=== PATIENT | male | born 1990 | race Caucasian/White ===

== ENCOUNTER 2019-09-08 11:06 | Outpatient (CLI) | payer OTHER, SELFPAY ==
--- NOTE | 2019-09-08 11:21 | XR_ITS ---
WS: [id number] LUMBAR SPINE FLEXION AND EXTENSION TECHNIQUE: 3 views of the lumbar spine: Lateral neutral, flexion, and extension views. CLINICAL INFORMATION: INTERVERTEBRAL DISC DISORDER WITH RADICULOPATHY OF LUMBOSACR COMPARISON: None. FINDINGS: Normal lumbar alignment on the neutral view. No instability on the flexion and extension views. XR/XR lumbar spine f/e only [id number] IMPRESSION: No instability on flexion-extension
--- NOTE | 2019-09-08 11:21 | MR_ITS ---
WS: [id number] MRI LUMBAR SPINE NONCONTRAST TECHNIQUE: Sagittal T1, T2 and STIR imaging. Axial T1 and T2 imaging. CLINICAL INFORMATION: INTERVERTEBRAL DISC DISORDER WITH RADICULOPATHY OF LUMBOSACR COMPARISON: MRI March 13, 2019 FINDINGS: Mild lumbar curve. No acute compression. Disc bulging worse L4-5 with a central disc protrusion. Mild annular bulging lower thoracic spine at T10-T11 and T11-T12. L1-L2: Normal. L2-L3: Normal. L3-L4: No significant disc bulging. Mild facet arthropathy. Spinal canal and foramen are patent. L4-L5: Left pericentral disc protrusion impinges the left subarticular recess and traversing left L5 nerve root. Impingement on the traversing left L5 nerve root. Moderate central canal stenosis. Mild l eft and no significant right foraminal narrowing. Mild facet arthropathy. L5-S1: Annular bulging with shallow broad-based protrusion. Slight encroachment traversing S1 nerve r oots. Foramen are patent. Mild facet arthropathy. Visualized pelvic bony structures: Normal. Paravertebral soft tissues: Normal. MR/MR lumbar spine wo con* [id number] IMPRESSION: 1. Central and left pericentral disc protrusion L4-5 impinges the traversing l eft L5 nerve root in the left subarticular recess. This is slightly progressed since 2019. 2. Moderate central canal stenosis L4-5. Mild left foraminal narrowing at this level. 3. Annular bulging L5-S1 with slight effacement of ventral thecal sac. Slight encroachment traversing S1 nerve roots. This is unchanged.
== END 2019-09-08 11:07 | disposition home or self-care (01) ==
LOC: RADWPI 11:11
PROVIDERS: Family Provider Family Medicine; PCP Family Medicine; Visit Provider Licensed Practical Nurse
DX: M51.17 Intervertebral disc disorders with radiculopathy, lumbosacral region (principal); M51.26 Other intervertebral disc displacement, lumbar region; M48.061 Spinal stenosis, lumbar region without neurogenic claudication
CPT/HCPCS: 72120; 72148

== ENCOUNTER → 2020-01-12 08:39 | Outpatient (BNVA) | payer OTHER, SELFPAY | PROVIDERS: Family Provider Family Medicine; PCP Family Medicine; Referring Provider Specialist; Visit Provider Anesthesiology Pain Medicine | DX: M51.16 Intervertebral disc disorders with radiculopathy, lumbar region (principal); M51.17 Intervertebral disc disorders with radiculopathy, lumbosacral region; M54.9 Dorsalgia, unspecified; F17.210 Nicotine dependence, cigarettes, uncomplicated | CPT/HCPCS: 99204 ==

== ENCOUNTER → 2020-01-26 13:26 | Outpatient (BNVA) | payer OTHER, SELFPAY | PROVIDERS: Family Provider Family Medicine; PCP Family Medicine; Visit Provider Anesthesiology Pain Medicine | DX: M51.17 Intervertebral disc disorders with radiculopathy, lumbosacral region (principal); M54.9 Dorsalgia, unspecified; F17.290 Nicotine dependence, other tobacco product, uncomplicated | CPT/HCPCS: 64483; 64484; J1040; J2001; J3490 ==

== ENCOUNTER → 2020-02-09 08:41 | Outpatient (BNVA) | payer OTHER, SELFPAY | PROVIDERS: Family Provider Family Medicine; PCP Family Medicine; Visit Provider Anesthesiology Pain Medicine | DX: M51.17 Intervertebral disc disorders with radiculopathy, lumbosacral region (principal); M51.16 Intervertebral disc disorders with radiculopathy, lumbar region; M54.9 Dorsalgia, unspecified; F17.290 Nicotine dependence, other tobacco product, uncomplicated | CPT/HCPCS: 99213 ==

== ENCOUNTER → 2020-02-23 09:17 | Outpatient (BNVA) | payer OTHER, SELFPAY | PROVIDERS: Family Provider Family Medicine; PCP Family Medicine; Visit Provider Anesthesiology Pain Medicine | DX: M51.16 Intervertebral disc disorders with radiculopathy, lumbar region (principal); M54.9 Dorsalgia, unspecified; F17.290 Nicotine dependence, other tobacco product, uncomplicated | CPT/HCPCS: 64483; 64484; J1040; J3490 ==

== ENCOUNTER → 2020-03-08 09:18 | Outpatient (BNVA) | payer OTHER, SELFPAY | PROVIDERS: Family Provider Family Medicine; PCP Family Medicine; Visit Provider Anesthesiology Pain Medicine | DX: M51.16 Intervertebral disc disorders with radiculopathy, lumbar region (principal); M51.17 Intervertebral disc disorders with radiculopathy, lumbosacral region; M54.9 Dorsalgia, unspecified | CPT/HCPCS: 99213 ==

== ENCOUNTER → 2020-04-03 14:32 | Outpatient (BNVA) | payer OTHER, SELFPAY | PROVIDERS: Family Provider Family Medicine; PCP Family Medicine; Visit Provider Anesthesiology Pain Medicine | DX: M51.16 Intervertebral disc disorders with radiculopathy, lumbar region (principal); M51.17 Intervertebral disc disorders with radiculopathy, lumbosacral region; M54.9 Dorsalgia, unspecified | CPT/HCPCS: 64483; 64484; J1040; J3490 ==

== ENCOUNTER → 2020-04-18 09:56 | Outpatient (BNVA) | payer OTHER, SELFPAY | PROVIDERS: Family Provider Family Medicine; PCP Family Medicine; Visit Provider Anesthesiology Pain Medicine | DX: M51.16 Intervertebral disc disorders with radiculopathy, lumbar region (principal); M51.17 Intervertebral disc disorders with radiculopathy, lumbosacral region; M54.9 Dorsalgia, unspecified; F17.210 Nicotine dependence, cigarettes, uncomplicated | CPT/HCPCS: 99213 ==

== ENCOUNTER → 2020-05-16 13:57 | Outpatient (BNVA) | payer OTHER, SELFPAY | PROVIDERS: Family Provider Family Medicine; PCP Family Medicine; Visit Provider Anesthesiology Pain Medicine | DX: G89.29 Other chronic pain (principal); M51.17 Intervertebral disc disorders with radiculopathy, lumbosacral region; M51.16 Intervertebral disc disorders with radiculopathy, lumbar region; M54.9 Dorsalgia, unspecified; F17.290 Nicotine dependence, other tobacco product, uncomplicated | CPT/HCPCS: 99213; 99214 ==

== ENCOUNTER → 2020-06-13 09:11 | Outpatient (BNVA) | payer OTHER, SELFPAY | PROVIDERS: Family Provider Family Medicine; PCP Family Medicine; Visit Provider Anesthesiology Pain Medicine | DX: G89.29 Other chronic pain (principal); M51.16 Intervertebral disc disorders with radiculopathy, lumbar region; M51.17 Intervertebral disc disorders with radiculopathy, lumbosacral region; M54.9 Dorsalgia, unspecified; F17.290 Nicotine dependence, other tobacco product, uncomplicated | CPT/HCPCS: 99214 ==

== ENCOUNTER 2023-03-05 06:05 | Inpatient (IN) | payer OTHER, SELFPAY ==
[2023-03-05] VITALS (24 sets, daily range): BP systolic 106–154; BP diastolic 43–102; PULSE 74–113; RESP 12–20; TEMP 36.7–38.8; O2SAT 92–100; BMI 25.0
--- NOTE | 2023-03-05 06:11 | ED_ITS ---
HPI - Abdominal Pain General: Chief Complaint: ER Hold Stated Complaint: abd pain Time Seen by Provider: 03/05/23 06:09 History of Present Illness: 32-year-old gentleman without significant past medical history presenting to the emergency department for abdominal pain. Notes onset of symptoms right upper quadrant and right flank without known specific provoking event approximately 2 PM yesterday afternoon. Since that time pain is worsened. Constant and dull with intermittent sharp stabbing pain. Has not tried to eat. Associated nausea but no vomiting. Denies constipation or other change in bowel habits. No groin pain or urinary symptoms. No other specific changes in health, exacerbating, or alleviating factors identified. Onset (ago): hour(s) Pain Consistency: constant Location: RUQ and R flank Quality: stabbing and dull Migration to: no migration Exacerbating factors: nothing Relieving factors: nothing Associated Symptoms: Reports no associated symptoms Review of Systems General: Reports: 10 or more systems reviewed and unremarkable except in HPI and below PFSH ED PFSH: Medical History Abdominal pain Constipation Displacement of lumbar disc with radiculopathy Intervertebral disc disorder with radiculopathy of lumbosacral region Opioid contract exists Smoker Family History Mother Hypertension Grandmother CAD (coronary artery disease) Social History Smoking and tobacco status: current every day smoker cigars Cigar details: 2 PER DAY Alcohol intake: current Alcohol intake frequency: holidays/special occasions only Substance/Drug Use: never Lives independently: Yes Household members: spouse Marital status: Current occupational status: employed Physical Exam Const: COMMON NORMALS: alert GENERAL APPEARANCE: cooperative and well developed HENMT: COMMON NORMALS: normocephalic and atraumatic HEAD & SCALP: normocephalic and atraumatic Eye: COMMON NORMALS: conjunctivae normal CONJUNCTIVA: Yes conjunctivae normal SCLERA: sclerae normal Neck/C-Spine: COMMON NORMALS: supple GENERAL: Yes trachea midline Resp: COMMON NORMALS: normal respiratory effort EFFORT & INSPECTION: Yes able to speak in complete sentences Cardio: COMMON NORMALS: regular rate and regular rhythm RATE: regular rate RHYTHM: regular rhythm GI: COMMON NORMALS: Soft to palpation PALPATION: Yes Soft to palpation, Yes Tenderness to palpation present (GI), No Guarding due to palpation present (GI), No Rigid due to palpation and Yes Hepatomegaly present Extremity: GENERAL: Yes normal exam except as noted and No edema Neuro: COMMON NORMALS: moves all extremities SENSORIUM/ORIENTATION: Yes alert and No Orientation impaired Psych: COMMON NORMALS: mental status grossly normal and Normal thought process present THOUGHT PROCESS: Normal thought process present Course Vital Signs: Vital signs: Vital Signs Temperature 98.4 F 03/08/23 11:15 Pulse Rate 86 03/08/23 11:15 Respiratory Rate 16 03/08/23 13:43 Blood Pressure 122/74 03/08/23 11:15 Pulse Oximetry 96 03/08/23 11:15 Oxygen Delivery Me thod Room Air 03/08/23 11:15 MDM - Abdominal Pain Medical Decision Making 32-year-old gentleman presenting with abdominal pain. Exam as above. Abdominal tenderness without evidence of acute surgical abdomen. Nontoxic. Labs notable for leukocytosis, normal hemoglobin and platelet count. Metabolic panel without electrolyte derangement. No UTI. CT demonstrates acute appendicitis with adjacent free fluid. Patient treated with analgesia, antiemetic, IV fluids, antibiotics. The results of ED evaluation were discussed with the patient including plan for admission due to requirement for level of care not available if discharged to prevent significant worsening/deterioration. Patient agreeable with plan. Discussed with general surgeon who was agreeable to admit patient. Medical Records I reviewed the patient's medical records. Lab Data I reviewed the patient's lab results. 03/08/23 05:00 03/08/23 05:00 Labs/Radiology: Radiology Impressions Abdomen/Pelvis CT 03/05/23 06:55 IMPRESSION: 1. Acute appendicitis with a small amount of adjacent free fluid. No abscess at this time. Recommend surgical consultation. 2. Otherwise negative. Laboratory Results WBC 16.2 10^3/uL (4.0-10.0) H 03/05/23 06:20 RBC 5.03 10^6/uL (4.1-5.3) 03/05/23 06:20 Hgb 16.1 g/dL (11.7-16.6) 03/05/23 06:20 Hct 46.4 % (42.0-52.0) 03/05/23 06:20 MCV 92.2 fl (80-94) 03/05/23 06:20 MCH 32.0 pg (28.0-34.0) 03/05/23 06:20 MCHC 34.7 g/dL (30.0-36.0) 03/05/23 06:20 RDW 11.1 % (12.1-15.1) L 03/05/23 06:20 Plt Count 275 10^3/cmm (130-400) 03/05/23 06:20 MPV 9.7 fL (7.4-10.4) 03/05/23 06:20 Neut % (Auto) 78.7 % 03/05/23 06:20 Lymph % (Auto) 10.8 % 03/05/23 06:20 [place] % (Auto) 9.2 % 03/05/23 06:20 Eos % (Auto) 0.7 % 03/05/23 06:20 Baso % (Auto) 0.3 % 03/05/23 06:20 Neut # (Auto) 12.76 10^3/uL (1.8-7.7) H 03/05/23 06:20 Lymph # (Auto) 1.8 10^3/uL (0.8-4.8) 03/05/23 06:20 [place] # (Auto) 1.5 10^3/uL (0.2-0.9) H 03/05/23 06:20 Eos # (Auto) 0.1 10^3/uL (0.0-0.8) 03/05/23 06:20 Baso # (Auto) 0.1 10^3/uL (0.0-0.1) 03/05/23 06:20 Nucleated RBC % (auto) 0 % 03/05/23 06:20 Nucleated RBCs # 0.0 /100WBC 03/05/23 06:20 Sodium 138 mmol/L (136-145) 03/05/23 06:20 Potassium 4.3 mmol/L (3.5-5.1) 03/05/23 06:20 Chloride 101 mmol/L (98-107) 03/05/23 06:20 Carbon Dioxide 25 mmol/L (22-29) 03/05/23 06:20 Anion Gap 16.3 (5-19) 03/05/23 06:20 BUN 9 mg/dL (6-20) 03/05/23 06:20 Creatinine 1.1 mg/dL (0.7-1.2) 03/05/23 06:20 GFR Calculation 77.6 mL/min (90-130) L 03/05/23 06:20 Glucose 143 mg/dL (65-115) H 03/05/23 06:20 Calculated Osmolality 287 mOsm/kg (285-295) 03/05/23 06:20 Calcium 9.5 mg/dL (8.5-10.5) 03/05/23 06:20 Total Bilirubin 0.7 mg/dL (0.15-1.2) 03/05/23 06:20 AST 15 U/L (0-40) 03/05/23 06:20 ALT 13 U/L (0-41) 03/05/23 06:20 Alkaline Phosphatase 98 U/L (40-130) 03/05/23 06:20 Total Protein 7.8 g/dL (6.6-8.7) 03/05/23 06:20 Albumin 4.6 g/dL (3.5-5.2) 03/05/23 06:20 Globulin 3.2 g/dL (1.3-4.6) 03/05/23 06:20 Lipase 14 U/L (13-60) 03/05/23 06:20 Urine Color Yellow (Yellow) 03/05/23 06:20 Urine Appearance Clear (CLEAR) 03/05/23 06:20 Urine pH 6 (5-7) 03/05/23 06:20 Ur Specific [place] 1.010 (1.005-1.030) 03/05/23 06:20 Urine Protein Neg (Negative) 03/05/23 06:20 Urine Glucose (UA) Norm (Normal) 03/05/23 06:20 Urine Ketones Negative (Negative) 03/05/23 06:20 Urine Blood Neg (Negative) 03/05/23 06:20 Urine Nitrate Negative (Negative) 03/05/23 06:20 Urine Bilirubin Neg (Negative) 03/05/23 06:20 Urine Urobilinogen Norm mg/dL (Negative) 03/05/23 06:20 Ur Leukocyte Esterase Negative (Negative) 03/05/23 06:20 Discharge Plan Discharge Patient Disposition: Admitted As Inpatient Admit Provider: Barrera Cline Clinical Impression: Acute appendicitis Condition: Stable Discharge Diet: Advance as tolerated Discharge Activity: Limit activity as instructed Coding Level of Care Code ED Dog [employer] Judge for Maty Avilez
[2023-03-05] MEDS: lactated ringers 1,000 ML 999 ML IV (06:26)
[2023-03-05] MEDS: ondansetron 2 mg/ML SDV 2 mL 4 MG IVP (06:28)
[2023-03-05] MEDS: morphine 4 mg/mL SDV 1 mL IVP (06:29)
[2023-03-05 06:30] LABS: Add Urine Microscopic? NO; Charge for UA Resulting for Rev
[2023-03-05 06:31] LABS: Basophils # 0.1 10^3/uL (0.0-0.1); Basophils % 0.3 %; Eosinophils # 0.1 10^3/uL (0.0-0.8); Eosinophils % 0.7 %; Hematocrit 46.4 % (42.0-52.0); Hemoglobin 16.1 g/dL (11.7-16.6); Lymphocytes # 1.8 10^3/uL (0.8-4.8); Lymphocytes % 10.8 %; Mean Corpuscular HGB Conc 34.7 g/dL (30.0-36.0); Mean Corpuscular Volume 92.2 fl (80-94); Mean Platelet Volume 9.7 fL (7.4-10.4); Monocytes # 1.5 10^3/uL (0.2-0.9); Monocytes % 9.2 %; Neutrophils # 12.76 10^3/uL (1.8-7.7); Neutrophils % 78.7 %; Nucleated Red Blood Cells % 0 %; Platelet Count 275 10^3/cmm (130-400); Red Blood Count 5.03 10^6/uL (4.1-5.3); Red Cell Distribution Width 11.1 % (12.1-15.1); White Blood Count 16.2 10^3/uL (4.0-10.0)
[2023-03-05 06:37] LABS: Bilirubin Urine Neg (Negative); Blood Urine Neg (Negative); Glucose Urine UA Norm (Normal); Ketones Urine Negative (Negative); Leukocyte Esterase Urine Negative (Negative); Nitrate Urine Negative (Negative); Protein Urine Neg (Negative); Urine Appearance Clear (CLEAR); Urine Color Yellow (Yellow); Urobilinogen Urine Norm (Negative); pH Urine 6 (5-7)
[2023-03-05 06:52] LABS: Alanine Aminotransferase 13 U/L (0-41); Albumin Level 4.6 g/dL (3.5-5.2); Alkaline Phosphatase 98 U/L (40-130); Anion Gap 16.3 (5-19); Aspartate Amino Transferase 15 U/L (0-40); Blood Urea Nitrogen 9 mg/dL (6-20); Calcium 9.5 mg/dL (8.5-10.5); Carbon Dioxide 25 mmol/L (22-29); Chloride 101 mmol/L (98-107); Globulin 3.2 g/dL (1.3-4.6); Glomerular Filtration Rate 77.6 mL/min (90-130); Glucose 143 mg/dL (65-115); Lipase 14 U/L (13-60); Osmolality Calculated 287 mOsm/kg (285-295); Potassium 4.3 mmol/L (3.5-5.1); Sodium 138 mmol/L (136-145); Total Bilirubin 0.7 mg/dL (0.15-1.2); Total Protein 7.8 g/dL (6.6-8.7)
--- NOTE | 2023-03-05 06:55 | CT_ITS ---
WS: [id number] CT ABDOMEN AND PELVIS WITH CONTRAST HISTORY: R sided abd pain, leukocytosis TECHNIQUE: Imaging performed of the abdomen and pelvis with IV contrast. Single phase imaging of the abdomen. Coronal and sagittal reformats are submitted. All CT scans at [facility] use at [address] one of these dose optimization techniques: automated exposure control; mA and/or kV adjustment per patient size (includes targeted exams where dose is matched to clinical indication); or iterative re construction. IV CONTRAST: Omnipaque 350; 100 mL IV. Oral contrast: No DLP: 443.75 mGy.cm COMPARISON: None available. Lower thorax: Lung bases are clear. Heart is normal size. Small hiatal hernia. Liver/biliary system: Normal size with no intrahepatic dilatation. Gallbladder: Normal. No gallstones or wall thickening. No pericholecystic fluid. Pancreas: Normal size pancreas and pancreatic duct. No adjacent inflammation. Spleen: Normal size spleen. No mass or infarct. Adrenal glands: Normal. Right kidney: Duplicated collecting system. No obstruction. Left kidney: No obstruction. 2 nonobstructing calcifications lower pole. The largest measures 7 mm. Aorta: Normal. Lymphadenopathy: None. Free fluid: None. GI tract: Acute inflammatory process in the RIGHT lower quadrant. There is a small amount of adjacent free fluid. The appendix extends superiorly and is abnormal. The appendix measures 10 mm with wall e nhancement. The appendix is positioned between the inferior RIGHT lobe of the liver and the anterior kidney. No abscess. Stomach is negative. No small bowel obstruction of colon obstruction. Abdominal wall: Unremarkable abdominal wall. No hernia. Pelvis: Small amount of free fluid in the pelvis. Bones: Unremarkable. CT/CT abdomen pelvis w con* [id number] IMPRESSION: 1. Acute appendicitis with a small amount of adjacent free fluid. No abscess a t this time. Recommend surgical consultation. 2. Otherwise negative.
[2023-03-05] MEDS: iohexol 350 mg/mL 500 mL Btl (per mL) IV (07:40)
--- NOTE | 2023-03-05 08:03 | PC.PHAR ---
pt states he takes no rx or otc medications
[2023-03-05] MEDS: piperacillin-tazobactam 4.5 GM in sodium chloride 0.9% (plus) 50 ML IV (08:19)
[2023-03-05] MEDS: fentaNYL 50 mcg/mL INJ 2mL IVP (08:19)
[2023-03-05] MEDS: fentaNYL 50 mcg/mL INJ 2mL 75 MCG IVP (10:55)
--- NOTE | 2023-03-05 11:22 | P.ANESASSM_ITS ---
Pre-Anesthetic Assessment Height/Weight: Height 1.73 m Weight 74.843 kg Temp Pulse Resp BP Pulse Ox O2 Del Method 98.8 F 101 H 16 145/79 94 Room Air 03/05/23 06:08 03/05/23 10:56 03/05/23 10:56 03/05/23 10:56 03/05/23 10:56 03/05/23 10:56 Preop Diagnosis: acute appendicitis Operation Date: 03/05/23 14:00 Proposed Procedures p Laparoscopic Appendectomy(Not Applicable) - Barrera Cline DO Familial anesthetic complications: never had an anesthetic Last intake: solid- 03/03/23 1800 clears- 03/04/23 1700 Social Alcohol (Beer daily) and Tobacco Exam alert, oriented x 3, clear to auscultation bilaterally and regular rate & rhythm Airway Submandibular: within normal limits Cervical ROM: within normal limits Mallampati: Class II Dentition: full Comments: Comments: Das Pulmonary None reported CV/HEM None reported None reported Hepatic None reported GI nausea Metabolic None reported Musc/skel Lower Back Pain (chronic pain ) Neuropsych None reported Anesthetic Plan ASA status: 2 Anesthesia: General Medications/Allergies Home Medications Medication Instructions Recorded Confirmed Last Taken Type No Known Home Medications 03/05/23 03/05/23 Unknown History Allergies Allergy/AdvReac Type Severity Reaction Status Date / Time No Known Allergies Allergy Verified 03/05/23 08:02 [facility] Anesthesia Medical History Abdominal pain Constipation Displacement of lumbar disc with radiculopathy Intervertebral disc disorder with radiculopathy of lumbosacral region Opioid contract exists Smoker Family History Mother Hypertension Grandmother CAD (coronary artery disease) Social History Smoking and tobacco status: current every day smoker cigars Cigar details: 2 P ER DAY Alcohol intake: current Alcohol intake frequency: holidays/special occasions only Substance/Drug Use: never Lives independently: Yes Household members: spouse Marital status: Current occupational status: employed Data Anesthesia 03/05/23 06:20 03/05/23 06:20 Short CBC 03/05/23 Range/Units 06:20 WBC 16.2 H (4.0-10.0) 10^3/uL Hgb 16.1 (11.7-16.6) g/dL Hct 46.4 (42.0-52.0) % MCV 92.2 (80-94) fl Plt Count 275 (130-400) 10^3/cmm Neut % (Auto) 78.7 % Neut # (Auto) 12.76 H (1.8-7.7) 10^3/uL BMP 03/05/23 06:20 Sodium 138 Potassium 4.3 Chloride 101 Carbon Dioxide 25 BUN 9 Creatinine 1.1 Glucose 143 H Calcium 9.5 Liver Function 03/05/23 Range/Units 06:20 Total Bilirubin 0.7 (0.15-1.2) mg/dL AST 15 (0-40) U/L ALT 13 (0-41) U/L Alkaline Phosphatase 98 (40-130) U/L Albumin 4.6 (3.5-5.2) g/dL Urine 03/05/23 Range/Units 06:20 Urine Color Yellow (Yellow) Urine Appearance Clear (CLEAR) Urine pH 6 (5-7) Ur Specific [place] 1.010 (1.005-1.030) Urine Protein Neg (Negative) Urine Glucose (UA) Norm (Normal) Urine Ketones Negative (Negative) Urine Nitrate Negative (Negative) Urine Bilirubin Neg (Negative) Ur Leukocyte Esterase Negative (Negative) Microbiology 03/05/23 08:17 Blood Culture - Preliminary Blood SPECIMEN COLLECTED 03/05/23 08:11 Blood Culture - Preliminary Blood SPECIMEN COLLECTED Cardiac Studies: No Data to Display
--- NOTE | 2023-03-05 11:28 | P.HP_ITS ---
Providers/Chief Complaint Admitting Physician: Barrera Cline DO Primary Care Provider: Joseph Cheema MD Chief Complaint: abd pain History of Present Illness Bennett Hamlin is a 32 year old male presents to the hospital with a 1 day history of right upper quadrant abdominal pain. He does report nausea and vomiting but denies any hematemesis. He reports chills but no documented fever. Denies any diarrhea or constipation. He is never had surgery on his abdomen. Work-up in the ER, including CT showed acute appendicitis. His appendix is located in his right upper quadrant. Review of Systems General: Reports: 10 or more systems reviewed and unremarkable except in HPI and below Medications/Allergies Home Medications Medication Instructions Recorded Confirmed Last Taken Type No Known Home Medications 03/05/23 03/05/23 Unknown History Allergies Allergy/AdvReac Type Severity Reaction Status Date / Time No Known Allergies Allergy Verified 03/05/23 08:02 PFSH Acute PFSH: Medical History Abdominal pain Constipation Displacement of lumbar disc with radiculopathy Intervertebral disc disorder with radiculopathy of lumbosacral region Opioid contract exists Smoker Family History Mother Hypertension Grandmother CAD (coronary artery disease) Social History Smoking and tobacco status: current every day smoker cigars Cigar details: 2 PER DAY Alcohol intake: current Alcohol intake frequency: holidays/special occasions only Substance/Drug Use: never Lives independently: Yes Household members: spouse Marital status: Current occupational status: employed Vitals/I&O/Wt Last Vital Signs Temp 98.8 F 03/05/23 06:08 Pulse 101 H 03/05/23 11:26 Resp 16 03/05/23 11:26 BP 145/79 03/05/23 11:26 Pulse Ox 94 03/05/23 11:26 O2 Del Method Room Air 03/05/23 10:56 03/04/23 03/05/23 03/05/23 22:59 06:59 14:59 Intake Total 1050 / 1050 Balance 1050 / 1050 Weight last 48 hrs Weight 165 lb Physical Exam Narrative: General : Patient is well developed , no acute distress, oriented x3 Head : Normal cephalic, a-traumatic. Ears : Pinnae and external canal are normal. Hearing is normal. Eyes : PERRLA, Sclera and injection are normal. No conjunctival discharge. Nose : Mucous membranes are without erythema. Throat : buccal mucosa is normal, gums are without significant recession or hyp ertrophy. Lungs : Equal chest rise bilaterally, no use of accessory muscles, trachea is midline. Cor : Rate and rhythm are normal. Abdomen : Soft, ND, right upper quadrant tenderness, no g/r/m Extremities : No edema, no cyanosis or clubbing, dorsalis pedis pulses are present bilaterally, non-tender to palpation of calves. Upper extremities are normal bilaterally. Back : non-tender to palpation, no CVA tenderness. Neuro : CN II - XII intact, Upper and lower extremities have equal and full str ength Data 03/05/23 06:20 03/05/23 06:20 Micro: Microbiology 03/05/23 08:17 Blood Culture - Preliminary Blood SPECIMEN COLLECTED 03/05/23 08:11 Blood Culture - Preliminary Blood SPECIMEN COLLECTED A&P Assessment and plan (1) Acute appendicitis: Plan Laparoscopic Appendectomy The risks and benefits of the procedure, including but not limited to, bleeding, infection, scar, numbness, pain, damage to surrounding structures, conversion to an open procedure, were explained to the patient. He is understanding of the risks and wishes to proceed. Attestations Medical Necessity Statement*: Patient requires at least 1 night in the hospital following laparoscopic appendectomy Coding Level of Care Code 74906 Diagnoses Acute appendicitis K35.80
[2023-03-05] MEDS: sodium chloride 0.9% 1,000 ML 30 ML IV (11:37)
[2023-03-05] MEDS: lidocaine-epi 2% 20 mL INJ INJECTION (12:05)
--- NOTE | 2023-03-05 15:04 | PM.OP ---
Operative Report Date of procedure: March 05, 2023 Pre-op diagnosis: Preop Diagnosis acute appendicitis Post-op diagnosis: same Procedure done: Diagnostic laparoscopy converted to exploratory laparotomy and appendectomy Implants: None Specimens removed/disposition: Appendix Surgeon: Dr. Barrera Cline DO Anesthesia: General Estimated blood loss (mL): 20 Complications: None apparent Brief History: This very pleasant 32-year-old gentleman who presented to the hospital with acute appendicitis. His appendix was found to be in his right upper quadrant on CT. Laparoscopic appendectomy was indicated. The risk and benefits were explained and documented. Procedure: Patient was wheeled operative room placed on the OR table in supine position. The abdomen was inspected prepped and draped in usual sterile fashion. Timeout was performed. All present were in agreement. 2% lidocaine with epinephrine was used to anesthetize the skin in the left upper quadrant. A 15 blade scalpel was then used to make a stab incision. A Veress needle was used to create intra-abdominal insufflation to 15 mmHg. A 12 mm trocar was then placed into the umbilicus. The appendix was identified to be in the right upper quadrant. 5 mm trocars were then placed at the Veress site and in the left lower quadrant. Meticulous dissection was performed in an attempt to isolate the appendix. The appendix was found to be in a very unusual location. The cecum began in the right upper quadrant and then went caudad and the ascending colon wrapping over on top of the cecum. I took down a good portion of the right white line of Toldt to try to mobilize the cecum. The appendix was identified but due to its location underneath the ascending colon and hepatic flexure, it was very difficult to get to. I would have had to take down the hepatic flexure and completely mobilized the right hemicolon in order to do this laparoscopically. The decision was then made to convert to an exploratory laparotomy due to the abnormal anatomy. A midline incision was then made with a 10 blade scalpel from the xiphoid process down to below the umbilicus. Electrocautery was then used to open the fascia along with finger. The abdominal wall was retracted and meticulous dissection was done with blunt dissection and electrocautery to further release the white line of Toldt. Some of the hepatic flexure was taken down with electrocautery. I did not want to completely mobilize the right hemicolon, leaving it vulnerable to future volvulus. I was able to identify the appendix and isolated. The mesoappendix was ligated with the Enseal. 2-0 silk was then placed around the base of the appendix x 2. The appendix was then ligated just distally. The abdomen was further inspected and no other abnormalities were identified. The abdomen was irrigated and suctioned. The midline incision was then closed with #1 PDS x 2 in a running fashion. Skin was closed with mandeep. Sterile bandages were applied. Patient tolerated the procedure well and was wheeled in the postop anesthesia care unit in good condition.
--- NOTE | 2023-03-05 15:23 | ANES.PROC ---
Anesthesia Procedures Procedure/Date: 03/05/23 Nerve Block ^: Nerve Block 1: Main Anesthesia: general anesthesia Time Out Performed: Yes Nerve block location: other (Bilateral TAP) Anesthesia monitors applied: pulse oximetry, EKG, BP cuff and oxygen Nerve block position: supine Anesthetic Used: ropivicaine 0.5% Amount of anesthesia used (mL): 30 Ultrasound used to: recognize landmarks Nerve Stimulator Used?: No Interscalene/Femoral BLK: 4 stimuplex 21 g needle used for position and inplane approach Injection: neg aspiration of heme Patient Tolerated Procedure: well Complications: none
[2023-03-05] MEDS: HYDROmorphone 1 mg/mL INJ 1 mL IVP ×3 (16:52→23:12)
--- NOTE | 2023-03-05 17:23 | ANE.PACU2 ---
Inpatient post-anesthesia follow up: Airway intact: Yes Vital signs: Temperature 98.1 F Pulse Rate 88 Respiratory Rate 16 Blood Pressure 125/77 Pulse Oximetry 96 Oxygen Delivery Me thod Room Air Oxygen Flow Rate Fraction of Inspir ed Oxygen Hydration adequate: Yes Nausea and vomiting: No Pain level: 2 Mental status: Baseline
[2023-03-05] MEDS: D5-NS 0.45% + KCL 20 mEq 20 MEQ/1,000 ML BAG 125 MEQ IV (17:24)
[2023-03-05] MEDS: heparin 5,000 unit/mL INJ 1 mL 5000 UNIT SUBCUT (17:25)
[2023-03-05] MEDS: pantoprazole 40 mg SDV IVP (17:26)
[2023-03-05] MEDS: piperacillin-tazobactam 3.375 GM in sodium chloride 0.9% (plus) 50 ML IV ×2 (17:26→23:17)
[2023-03-05] MEDS: phenol oral Spray 177 mL 3 SPRAY MUCOUS MEM (19:34)
[2023-03-06] VITALS (15 sets, daily range): BP systolic 119–149; BP diastolic 72–89; PULSE 84–99; RESP 14–18; TEMP 36.8–38.2; O2SAT 93–97
[2023-03-06] MEDS: D5-NS 0.45% + KCL 20 mEq 20 MEQ/1,000 ML BAG 125 MEQ IV ×3 (01:13→16:51)
[2023-03-06] MEDS: HYDROmorphone 1 mg/mL INJ 1 mL IVP ×7 (02:32→22:41)
[2023-03-06] MEDS: heparin 5,000 unit/mL INJ 1 mL 5000 UNIT SUBCUT ×2 (02:34→14:08)
[2023-03-06 04:57] LABS: Basophils % 0.1 %; Eosinophils % 0.1 %; Hematocrit 38.3 % (42.0-52.0); Hemoglobin 13.1 g/dL (11.7-16.6); Lymphocytes # 1.3 10^3/uL (0.8-4.8); Lymphocytes % 9.7 %; Mean Corpuscular HGB Conc 34.2 g/dL (30.0-36.0); Mean Corpuscular Hemoglobin 32.4 pg (28.0-34.0); Mean Corpuscular Volume 94.8 fl (80-94); Mean Platelet Volume 9.6 fL (7.4-10.4); Monocytes # 1.1 10^3/uL (0.2-0.9); Monocytes % 8.3 %; Neutrophils # 11.25 10^3/uL (1.8-7.7); Neutrophils % 81.6 %; Nucleated Red Blood Cells % 0 %; Platelet Count 207 10^3/cmm (130-400); Red Blood Count 4.04 10^6/uL (4.1-5.3); Red Cell Distribution Width 11.2 % (12.1-15.1); White Blood Count 13.8 10^3/uL (4.0-10.0)
[2023-03-06 05:14] LABS: Blood Urea Nitrogen 8 mg/dL (6-20); Calcium 8.4 mg/dL (8.5-10.5); Carbon Dioxide 26 mmol/L (22-29); Chloride 100 mmol/L (98-107); Glucose 124 mg/dL (65-115); Magnesium 1.8 mg/dL (1.7-2.3); Osmolality Calculated 278 mOsm/kg (285-295); Phosphorus 2.9 mg/dL (2.5-4.5); Sodium 134 mmol/L (136-145)
[2023-03-06] MEDS: morphine 4 mg/mL SDV 1 mL IVP ×3 (07:59→14:34)
[2023-03-06] MEDS: piperacillin-tazobactam 3.375 GM in sodium chloride 0.9% (plus) 50 ML IV ×2 (07:59→16:10)
[2023-03-06] MEDS: magnesium sulfate premix 2 GM/50 ML PIGGYBACK IV (09:30)
--- NOTE | 2023-03-06 11:04 | P.PN_ITS ---
Subjective Subjective: Patient seen and examined. Pain controlled. Still not passing flatus Vitals/I&O/Wt Last Vital Signs Temp 98.4 F 03/06/23 07:39 Pulse 84 03/06/23 07:39 Resp 14 03/06/23 09:28 BP 132/83 03/06/23 07:39 Pulse Ox 97 03/06/23 07:39 O2 Del Method Room Air 03/06/23 04:00 03/05/23 03/06/23 03/06/23 22:59 06:59 14:59 Intake Total 50 / 2600 1027.083 / 3627.083 1169.792 / 1169.792 Output Total 420 / 970 600 / 1570 300 / 300 Balance -370 / 1630 427.083 / 2057.083 869.792 / 869.792 Weight last 48 hrs Weight 165 lb Physical Exam Narrative: General: No acute distress, awake alert and oriented x3 Abdomen: Soft, nondistended, appropriately tender to palpation, no guarding sandro ound or masses Dressings clean dry and intact Urinary Catheter Management: Wills: Cath Placed During This Visit: yes Reason for Continuing Indwelling Catheter: Required Immobilization for Trauma or Surgery or Anesthesia Urinary Catheter Date of Insertion: 03/05/23 Urinary Catheter Time of Insertion: 14:30 Data 03/06/23 04:32 03/06/23 04:32 Micro: Microbiology 03/05/23 08:17 Blood Culture - Preliminary Blood NEGATIVE TO DATE 03/05/23 08:11 Blood Culture - Preliminary Blood NEGATIVE TO DATE A&P Assessment and plan (1) Acute appendicitis: Plan Status post diagnostic laparoscopy followed by exploratory laparotomy and appendectomy N.p.o./NGT to LIWS IV fluids IV antibiotics Await return of bowel function Attestations Medical Necessity Statement*: Patient requires multiple more nights in the hospital following exploratory laparotomy Coding Level of Care Code Acute Code for [facility] Diagnoses Acute appendicitis K35.80
[2023-03-06 14:20] LABS: Basophils % 0.2 %; Eosinophils % 0.2 %; Hematocrit 39.4 % (42.0-52.0); Hemoglobin 13.3 g/dL (11.7-16.6); Lymphocytes # 1.7 10^3/uL (0.8-4.8); Lymphocytes % 12.9 %; Mean Corpuscular HGB Conc 33.8 g/dL (30.0-36.0); Mean Corpuscular Hemoglobin 31.9 pg (28.0-34.0); Mean Corpuscular Volume 94.5 fl (80-94); Monocytes % 7.8 %; Neutrophils % 78.6 %; Nucleated Red Blood Cells % 0 %; Platelet Count 233 10^3/cmm (130-400); Red Blood Count 4.17 10^6/uL (4.1-5.3); Red Cell Distribution Width 11.3 % (12.1-15.1); White Blood Count 13.3 10^3/uL (4.0-10.0)
[2023-03-06] MEDS: pantoprazole 40 mg SDV IVP (14:34)
[2023-03-06 14:39] LABS: Anion Gap 14.7 (5-19); Blood Urea Nitrogen 6 mg/dL (6-20); Calcium 8.2 mg/dL (8.5-10.5); Carbon Dioxide 25 mmol/L (22-29); Chloride 102 mmol/L (98-107); Glucose 106 mg/dL (65-115); Magnesium 2.2 mg/dL (1.7-2.3); Osmolality Calculated 284 mOsm/kg (285-295); Potassium 3.7 mmol/L (3.5-5.1); Sodium 138 mmol/L (136-145)
[2023-03-06] MEDS: acetaminophen 1,000 MG/100 ML PIGGYBACK 400 MG IV (16:25)
[2023-03-07] VITALS (12 sets, daily range): BP systolic 129–149; BP diastolic 78–84; PULSE 80–92; RESP 16–18; TEMP 36.4–37.3; O2SAT 92–96
[2023-03-07] MEDS: D5-NS 0.45% + KCL 20 mEq 20 MEQ/1,000 ML BAG 125 MEQ IV (00:26)
[2023-03-07] MEDS: piperacillin-tazobactam 3.375 GM in sodium chloride 0.9% (plus) 50 ML IV ×4 (00:26→23:52)
[2023-03-07] MEDS: acetaminophen 1,000 MG/100 ML PIGGYBACK 400 MG IV (00:26)
[2023-03-07] MEDS: HYDROmorphone 1 mg/mL INJ 1 mL IVP ×6 (03:40→23:59)
[2023-03-07] MEDS: heparin 5,000 unit/mL INJ 1 mL 5000 UNIT SUBCUT ×2 (03:40→13:33)
[2023-03-07] MEDS: HYDROcodone-acetaminophen 7.5-325 mg Tablet 1 TAB PO ×4 (09:28→22:31)
--- NOTE | 2023-03-07 10:31 | PM.PN ---
Subjective Subjective: Patient seen and examined. Pain controlled. Passing flatus and tolerating clear liquid diet Vitals/I&O/Wt Last Vital Signs Temp 99.0 F 03/07/23 07:57 Pulse 90 03/07/23 07:57 Resp 16 03/07/23 07:57 BP 149/84 03/07/23 07:57 Pulse Ox 94 03/07/23 07:57 O2 Del Method Room Air 03/06/23 04:00 03/06/23 03/07/23 03/07/23 22:59 06:59 14:59 Intake Total 1989. 1097.917 / 4287.917 1000 / 1000 Output Total 0 / 300 Balance 1989 289. 1097.917 / 3987.917 1000 / 1000 Physical Exam Narrative: General: No acute distress, awake alert and oriented x3 Abdomen: Soft, nondistended, appropriately tender to palpation, no guarding rebound or masses Incision intact without erythema or exudate Urinary Catheter Management: Wills: Cath Placed During This Visit: yes, but has since been removed by the nurse Reason for Continuing Indwelling Catheter: Decision to DC Catheter Urinary Catheter Date of Insertion: 03/05/23 Urinary Catheter Time of Insertion: 14:30 Date Urinary Catheter Removed: 03/06/23 Time Urinary Catheter Discontinued: 10:00 Data 03/06/23 13:08 03/06/23 13:08 Micro: Microbiology 03/05/23 08:17 Blood Culture - Preliminary Blood NEGATIVE TO DATE 03/05/23 08:11 Blood Culture - Preliminary Blood NEGATIVE TO DATE A&P Assessment and plan (1) Acute appendicitis: Plan Status post diagnostic laparoscopy followed by exploratory laparotomy and appendectomy Full liquid diet See orders IV antibiotics Await return of bowel function Attestations Medical Necessity Statement*: Patient requires at least 1 more night in the hospital following exploratory laparotomy Coding Level of Care Code Acute Code for [facility] Diagnoses Acute appendicitis K35.80
[2023-03-07] MEDS: potassium chloride ER 20 mEq Tablet 40 MEQ PO (10:33)
[2023-03-07] MEDS: docusate sodium 100 mg Capsule PO ×2 (10:33→18:12)
[2023-03-07 10:54] LABS: Basophils # 0.1 10^3/uL (0.0-0.1); Basophils % 0.4 %; Eosinophils # 0.1 10^3/uL (0.0-0.8); Eosinophils % 0.7 %; Hematocrit 40.7 % (42.0-52.0); Hemoglobin 13.6 g/dL (11.7-16.6); Lymphocytes # 1.6 10^3/uL (0.8-4.8); Lymphocytes % 14.7 %; Mean Corpuscular HGB Conc 33.4 g/dL (30.0-36.0); Mean Corpuscular Hemoglobin 32.1 pg (28.0-34.0); Mean Platelet Volume 9.9 fL (7.4-10.4); Monocytes # 1.1 10^3/uL (0.2-0.9); Monocytes % 9.6 %; Neutrophils # 8.28 10^3/uL (1.8-7.7); Neutrophils % 74.3 %; Nucleated Red Blood Cells % 0 %; Platelet Count 242 10^3/cmm (130-400); Red Blood Count 4.24 10^6/uL (4.1-5.3); Red Cell Distribution Width 11.2 % (12.1-15.1); White Blood Count 11.2 10^3/uL (4.0-10.0)
[2023-03-07 11:26] LABS: Magnesium 2.1 mg/dL (1.7-2.3)
[2023-03-07 11:40] LABS: Alanine Aminotransferase 12 U/L (0-41); Alkaline Phosphatase 79 U/L (40-130); Blood Urea Nitrogen 4 mg/dL (6-20); Calcium 8.8 mg/dL (8.5-10.5); Carbon Dioxide 20 mmol/L (22-29); Chloride 104 mmol/L (98-107); Globulin 2.7 g/dL (1.3-4.6); Glomerular Filtration Rate 130.7 mL/min (90-130); Glucose 103 mg/dL (65-115); Osmolality Calculated 283 mOsm/kg (285-295); Phosphorus 2.3 mg/dL (2.5-4.5); Sodium 138 mmol/L (136-145); Total Bilirubin 0.6 mg/dL (0.15-1.2); Total Protein 6.7 g/dL (6.6-8.7)
[2023-03-07 11:41] LABS: Anion Gap 18.3 (5-19); Potassium 4.3 mmol/L (3.5-5.1)
[2023-03-07 11:42] LABS: Aspartate Amino Transferase 15 U/L (0-40)
[2023-03-07] MEDS: pantoprazole 40 mg SDV IVP (13:32)
[2023-03-08] VITALS (7 sets, daily range): BP systolic 113–127; BP diastolic 68–79; PULSE 80–88; RESP 16–18; TEMP 36.4–36.9; O2SAT 94–96
[2023-03-08] MEDS: heparin 5,000 unit/mL INJ 1 mL 5000 UNIT SUBCUT ×2 (03:17→13:43)
[2023-03-08] MEDS: HYDROcodone-acetaminophen 7.5-325 mg Tablet 1 TAB PO ×3 (03:17→11:40)
[2023-03-08] MEDS: HYDROmorphone 1 mg/mL INJ 1 mL IVP ×3 (04:19→13:43)
[2023-03-08 05:16] LABS: Basophils # 0.1 10^3/uL (0.0-0.1); Basophils % 0.6 %; Eosinophils # 0.2 10^3/uL (0.0-0.8); Eosinophils % 2.4 %; Hematocrit 35.2 % (42.0-52.0); Hemoglobin 12.1 g/dL (11.7-16.6); Lymphocytes % 23.9 %; Mean Corpuscular HGB Conc 34.4 g/dL (30.0-36.0); Mean Corpuscular Hemoglobin 32.8 pg (28.0-34.0); Mean Corpuscular Volume 95.4 fl (80-94); Mean Platelet Volume 9.3 fL (7.4-10.4); Monocytes % 11.4 %; Neutrophils # 5.11 10^3/uL (1.8-7.7); Neutrophils % 61.5 %; Nucleated Red Blood Cells % 0 %; Platelet Count 244 10^3/cmm (130-400); Red Blood Count 3.69 10^6/uL (4.1-5.3); Red Cell Distribution Width 11.1 % (12.1-15.1); White Blood Count 8.3 10^3/uL (4.0-10.0)
[2023-03-08 05:33] LABS: Alanine Aminotransferase 7 U/L (0-41); Albumin Level 3.3 g/dL (3.5-5.2); Alkaline Phosphatase 64 U/L (40-130); Anion Gap 13.1 (5-19); Aspartate Amino Transferase 9 U/L (0-40); Blood Urea Nitrogen 5 mg/dL (6-20); Carbon Dioxide 22 mmol/L (22-29); Chloride 103 mmol/L (98-107); Globulin 2.2 g/dL (1.3-4.6); Glomerular Filtration Rate 130.7 mL/min (90-130); Glucose 89 mg/dL (65-115); Osmolality Calculated 275 mOsm/kg (285-295); Phosphorus 3.3 mg/dL (2.5-4.5); Potassium 4.1 mmol/L (3.5-5.1); Sodium 134 mmol/L (136-145); Total Bilirubin 0.5 mg/dL (0.15-1.2); Total Protein 5.5 g/dL (6.6-8.7)
[2023-03-08 05:36] LABS: Magnesium 1.8 mg/dL (1.7-2.3)
[2023-03-08] MEDS: piperacillin-tazobactam 3.375 GM in sodium chloride 0.9% (plus) 50 ML IV (07:58)
[2023-03-08] MEDS: docusate sodium 100 mg Capsule PO (07:59)
--- NOTE | 2023-03-08 13:12 | PM.DCS ---
Discharge Providers Date of Admission: 03/05/23 15:06 Date of Discharge: March 08, 2023 Attending Provider at Admission: Barrera Cline DO Attending Provider at Discharge: Barrera Cline DO Primary Care Provider: Joseph Cheema MD Diagnoses at Discharge Discharge Diagnosis (1) Acute appendicitis: Status: Acute Reason for Visit Reason for Visit: abd pain Hospital Course Hospital Course This is a very pleasant 32-year-old gentleman who presented to the hospital with right upper quadrant abdominal pain. He was diagnosed with acute appendicitis. He underwent a diagnostic laparoscopy and was found to have an irregular right colon configuration. His cecum began in the right upper quadrant where it was adhered to the liver. The ascending colon then went inferiorly and folded over the cecum and proximal ascending colon. The procedure was current converted to an exploratory laparotomy and the cecum had to be taken down from the liver and right colic gutter. Appendectomy was performed. Patient did well postoperatively and was discharged home in good condition Physical Exam Narrative: General : Patient is well developed , no acute distress, oriented x3 Head : Normal cephalic, a-traumatic. Ears : Pinnae and external canal are normal. Hearing is normal. Eyes : PERRLA, Sclera and injection are normal. No conjunctival discharge. Nose : Mucous membranes are without erythema. Throat : buccal mucosa is normal, gums are without significant recession or hypertrophy. Lungs : Equal chest rise bilaterally, no use of accessory muscles, trachea is midline. Cor : Rate and rhythm are normal. Abdomen : Soft, ND, appropriately tender, no g/r/m Incision intact without erythema or exudate Extremities : No edema, no cyanosis or clubbing, dorsalis pedis pulses are present bilaterally, non-tender to palpation of calves. Upper extremities are normal bilaterally. Back : non-tender to palpation, no CVA tenderness. Neuro : CN II - XII intact, Upper and lower extremities have equal and full strength Urinary Catheter Management: Wills: Cath Placed During This Visit: yes, but has since been removed by the nurse Reason for Continuing Indwelling Catheter: Decision to DC Catheter Urinary Catheter Date of Insertion: 03/05/23 Urinary Catheter Time of Insertion: 14:30 Date Urinary Catheter Removed: 03/06/23 Time Urinary Catheter Discontinued: 10:00 Discharge Data Studies Completed and Pending Completed Studies During Hospitalization Category Date Time Status CT abdomen pelvis w con* [id number] Stat Cat Scan 03/05/23 06:55 Completed Pending at discharge Category Date Time Status Blood Culture Stat Lab 03/05/23 08:17 Results CBC Auto Diff [Complete Blood Count w/Auto] AM LABS Lab 03/09/23 04:00 Ordered CBC Auto Diff [Complete Blood Count w/Auto] AM LABS Lab 03/10/23 04:00 Ordered CMP [Comprehensive Metabolic Panel] AM LABS Lab 03/09/23 04:00 Ordered CMP [Comprehensive Metabolic Panel] AM LABS Lab 03/10/23 04:00 Ordered Magnesium AM LABS Lab 03/09/23 04:00 Ordered Magnesium AM LABS Lab 03/10/23 04:00 Ordered Phosphorus AM LABS Lab 03/09/23 04:00 Ordered Phosphorus AM LABS Lab 03/10/23 04:00 Ordered Pathology: Surgical [PTH] Routine Pth 03/05/23 14:02 Received Radiology Impressions Abdomen/Pelvis CT 03/05/23 06:55 IMPRESSION: 1. Acute appendicitis with a small amount of adjacent free fluid. No abscess at this time. Recommend surgical consultation. 2. Otherwise negative. Laboratory Results WBC 8.3 10^3/uL (4.0-10.0) 03/08/23 05:00 RBC 3.69 10^6/uL (4.1-5.3) L 03/08/23 05:00 Hgb 12.1 g/dL (11.7-16.6) 03/08/23 05:00 Hct 35.2 % (42.0-52.0) L 03/08/23 05:00 MCV 95.4 fl (80-94) H 03/08/23 05:00 MCH 32.8 pg (28.0-34.0) 03/08/23 05:00 MCHC 34.4 g/dL (30.0-36.0) 03/08/23 05:00 RDW 11.1 % (12.1-15.1) L 03/08/23 05:00 Plt Count 244 10^3/cmm (130-400) 03/08/23 05:00 MPV 9.3 fL (7.4-10.4) 03/08/23 05:00 Neut % (Auto) 61.5 % 03/08/23 05:00 Lymph % (Auto) 23.9 % 03/08/23 05:00 [place] % (Auto) 11.4 % 03/08/23 05:00 Eos % (Auto) 2.4 % 03/08/23 05:00 Baso % (Auto) 0.6 % 03/08/23 05:00 Neut # (Auto) 5.11 10^3/uL (1.8-7.7) 03/08/23 05:00 Lymph # (Auto) 2.0 10^3/uL (0.8-4.8) 03/08/23 05:00 [place] # (Auto) 1.0 10^3/uL (0.2-0.9) H 03/08/23 05:00 Eos # (Auto) 0.2 10^3/uL (0.0-0.8) 03/08/23 05:00 Baso # (Auto) 0.1 10^3/uL (0.0-0.1) 03/08/23 05:00 Nucleated RBC % (auto) 0 % 03/08/23 05:00 Nucleated RBCs # 0.0 /100WBC 03/08/23 05:00 Sodium 134 mmol/L (136-145) L 03/08/23 05:00 Potassium 4.1 mmol/L (3.5-5.1) 03/08/23 05:00 Chloride 103 mmol/L (98-107) 03/08/23 05:00 Carbon Dioxide 22 mmol/L (22-29) 03/08/23 05:00 Anion Gap 13.1 (5-19) 03/08/23 05:00 BUN 5 mg/dL (6-20) L 03/08/23 05:00 Creatinine 0.7 mg/dL (0.7-1.2) 03/08/23 05:00 GFR Calculation 130.7 mL/min (90-130) H 03/08/23 05:00 Glucose 89 mg/dL (65-115) 03/08/23 05:00 Calculated Osmolality 275 mOsm/kg (285-295) L 03/08/23 05:00 Calcium 8.0 mg/dL (8.5-10.5) L 03/08/23 05:00 Phosphorus 3.3 mg/dL (2.5-4.5) 03/08/23 05:00 Magnesium 1.8 mg/dL (1.7-2.3) 03/08/23 05:00 Total Bilirubin 0.5 mg/dL (0.15-1.2) 03/08/23 05:00 AST 9 U/L (0-40) 03/08/23 05:00 ALT 7 U/L (0-41) 03/08/23 05:00 Alkaline Phosphatase 64 U/L (40-130) 03/08/23 05:00 Total Protein 5.5 g/dL (6.6-8.7) L 03/08/23 05:00 Albumin 3.3 g/dL (3.5-5.2) L 03/08/23 05:00 Globulin 2.2 g/dL (1.3-4.6) 03/08/23 05:00 Lipase 14 U/L (13-60) 03/05/23 06:20 Urine Color Yellow (Yellow) 03/05/23 06:20 Urine Appearance Clear (CLEAR) 03/05/23 06:20 Urine pH 6 (5-7) 03/05/23 06:20 Ur Specific [place] 1.010 (1.005-1.030) 03/05/23 06:20 Urine Protein Neg (Negative) 03/05/23 06:20 Urine Glucose (UA) Norm (Normal) 03/05/23 06:20 Urine Ketones Negative (Negative) 03/05/23 06:20 Urine Blood Neg (Negative) 03/05/23 06:20 Urine Nitrate Negative (Negative) 03/05/23 06:20 Urine Bilirubin Neg (Negative) 03/05/23 06:20 Urine Urobilinogen Norm mg/dL (Negative) 03/05/23 06:20 Ur Leukocyte Esterase Negative (Negative) 03/05/23 06:20 Procedures Performed Diagnostic laparoscopy Exploratory laparotomy Appendectomy Vitals Last Vital Signs Temp 98.4 F 03/08/23 11:15 Pulse 86 03/08/23 11:15 Resp 18 03/08/23 11:15 BP 122/74 03/08/23 11:15 Pulse Ox 96 03/08/23 11:15 O2 Del Method Room Air 03/08/23 11:15 Discharge Plan Discharge Patient Disposition: Home Condition: Stable Prescriptions: New hydrocodone-acetaminophen 10-325 mg tablet 1 tab PO Q6H PRN (Reason: pain) Qty: 20 0RF Rx Instructions: May take half of a tab at a time Colace 100 mg capsule 100 mg PO BID Qty: 14 0RF Discharge Orders: Discharge Order (Routine); Ordered 03/08/23 Ordered By: Barrera Cline Referrals: Barrera Cline DO [Physician] - 2 weeks (Wednesday or next week the mandeep need to come out) Joseph Cheema MD [Primary Care Provider] - Discharge Diet: Advance as tolerated Discharge Activity: Limit activity as instructed Patient Instructions: Opioid Safety, Post Anesthesia Care Activity Restrictions/Additional Instructions: No lifting, pushing or pulling over 15 pounds for 6 weeks. Do not soak incisions underwater for 2 weeks. Shower daily. Discharge Attestations Time Spent in Discharge Care*: less than 30 min Quality Metrics Clinical Quality Measures [ No reported AMI, CVA or VTE this stay] Coding Level of Care Code Acute Code for g [facility] Diagnoses Acute appendicitis K35.80
[2023-03-08] MEDS: pantoprazole 40 mg SDV IVP (13:43)
== END 2023-03-08 16:06 | disposition home or self-care (01) | DRG 336 ==
LOC: ER 08:08 → ER IP 08:45 → ER 11:40 → OR 11:42 → MEDSURG 03-06 06:55
PROVIDERS: Admitting Provider Surgery; Emergency Provider Emergency Medicine; PCP Family Medicine; Visit Provider Surgery
PROC: 0DNH0ZZ Release Cecum, Open Approach (ICD-10-PCS; CPT 44950; 2023-03-05 13:40)
DX: K35.80 Unspecified acute appendicitis (principal); Q43.8 Other specified congenital malformations of intestine; F17.210 Nicotine dependence, cigarettes, uncomplicated; M51.17 Intervertebral disc disorders with radiculopathy, lumbosacral region; Z79.891 Long term (current) use of opiate analgesic
CPT/HCPCS: 36415; 51702; 74177; 80048; 80053; 81003; 83690; 83735; 84100; 85025; 87040; 88304; 96365; 96372; 96375; 96376; 99285; C9113; J0131; J0330; J1100; J1170; J1644; J2250; J2270; J2405; J2543; J2704; J2710; J3010; J3475; J3490; J7030; J7120; Q9967